=== PATIENT | female | born 1985 | race American Indian/Alaskan Native ===

== ENCOUNTER 2020-03-21 14:52 | Emergency (ER) | payer SELFPAY ==
--- NOTE | 2020-03-21 15:08 | Event Note ---
ED Screening Note Date of service: 03/21/20 Time: 15:07 ED Screening Note: Patient complains of right breast abscess x1 week Worsening This initial assessment/diagnostic orders/clinical plan/treatment(s) is/are subject to change based on patients health status, clinical progression and re-assessment by fellow clinical providers in the ED. Further treatment and workup at subsequent clinical providers discretion. Patient/guardian urged not to elope from the ED as their condition may be serious if not clinically assessed and managed. Initial orders include: Incision and drainage
[2020-03-21 16:18] LABS: Basophils % (Auto) 0.2 % (0.0-1.8); Eosinophils % (Auto) 0.3 % (0.0-4.3); Hematocrit 34.5 % (30.3-42.9); Hemoglobin 11.3 gm/dl (10.1-14.3); Lymphocytes # (Auto) 2.4 K/mm3 (1.2-5.4); Lymphocytes % (Auto) 21.7 % (13.4-35.0); Mean Corpuscular HGB Conc 33 % (30-34); Mean Corpuscular Volume 80 fl (79-97); Monocytes # (Auto) 1.2 K/mm3 (0.0-0.8); Platelet Count 373 K/mm3 (140-440); Red Blood Count 4.29 M/mm3 (3.65-5.03); Red Cell Distribution Width 15.5 % (13.2-15.2)
[2020-03-21 16:30] LABS: Alanine Aminotransferase 14 units/L (7-56); BUN/Creatinine Ratio 9; Blood Urea Nitrogen 7 mg/dL (7-17); Hemolysis Index 3
[2020-03-21] MEDS ORDERED: IBUPROFEN 600 MG TAB PO ONE (17:39)
[2020-03-21] MEDS ORDERED: cefTRIAXone/NS 1 GM/50 ML 1 GM/50 ML BAG IV ONE (17:43)
--- NOTE | 2020-03-21 17:46 | Emergency Department Report ---
- General Chief complaint: Skin/Abscess/Foreign Body Stated complaint: ABSCESS ON RIGHT BREAST Time Seen by Provider: 03/21/20 15:07 Source: patient Mode of arrival: Ambulatory Limitations: No Limitations - History of Present Illness Initial comments: The patient was evaluated in the emergency department for symptoms described in the history of present illness. He/she was evaluated in the context of the global COVID-19 pandemic, which necessitated consideration that the patient might be at risk for infection with the virus that causes COVID-19. Institutional protocols and algorithms that pertain to the evaluation of patients at risk for COVID-19 are in a state of rapid change based on information released by regulatory bodies including the CDC and federal and state organizations. These policies and algorithms were followed during the patient's care in the emergency department. Please note that these policies, procedures and recommendations changed on a rapid basis. 35-year-old -[place] female presents to the emergency room complaining of an abscess to her right breast x1 week. Patient denies any drainage. Patient states that she has been taking Keflex twice a day since Thursday. She does complain of fever chills and headache. Patient states that she had an abscess to the same breast in 2018. Patient has no other complaints. Denies any past medical history does not take any medications on a daily basis. MD complaint: abscess/boil Onset/Timin -: week(s) Tetanus Up to Date: unsure Location: chest (Right breast) Severity: moderate Severity scale (0 -10): 7 Quality: aching, sharp Consistency: constant Improves with: none Worsens with: palpation, movement Associated symptoms: fever, chills, other (Headache) Treatments Prior to Arrival: other (Keflex) - Related Data Previous Rx's Medication Instructions Recorded Last Taken Type Ibuprofen [Motrin 600 MG tab] 600 mg PO Q8H PRN #30 tablet 03/21/20 Unknown Rx Sulfamethoxazole/Trimethoprim 1 each PO BID 10 Days #20 tablet 03/21/20 Unknown Rx [Bactrim DS TAB] cephALEXin [Keflex] 500 mg PO Q12HR 10 Days #20 cap 03/21/20 Unknown Rx Allergies Allergy/AdvReac Type Severity Reaction Status Date / Time No Known Allergies Allergy Unverified 03/21/20 15:08 Abscess Boil HPI - HPI Chief Complaint: Skin/Abscess/Foreign Body Stated Complaint: ABSCESS ON RIGHT BREAST Time Seen by Provider: 03/21/20 15:07 Home Medications: Previous Rx's Medication Instructions Recorded Last Taken Type Ibuprofen [Motrin 600 MG tab] 600 mg PO Q8H PRN #30 tablet 03/21/20 Unknown Rx Sulfamethoxazole/Trimethoprim 1 each PO BID 10 Days #20 tablet 03/21/20 Unknown Rx [Bactrim DS TAB] cephALEXin [Keflex] 500 mg PO Q12HR 10 Days #20 cap 03/21/20 Unknown Rx Allergies/Adverse Reactions: Allergies Allergy/AdvReac Type Severity Reaction Status Date / Time No Known Allergies Allergy Unverified 03/21/20 15:08 ED Review of Systems ROS: Stated complaint: ABSCESS ON RIGHT BREAST Other details as noted in HPI Comment: All other systems reviewed and negative ED Past Medical Hx - Past Medical History Previous Medical History?: No - Surgical History Past Surgical History?: No - Medications Home Medications: Home Medications Medication Instructions Recorded Confirmed Last Taken Type Ibuprofen [Motrin 600 MG tab] 600 mg PO Q8H PRN #30 tablet 03/21/20 Unknown Rx Sulfamethoxazole/Trimethoprim 1 each PO BID 10 Days #20 tablet 03/21/20 Unknown Rx [Bactrim DS TAB] cephALEXin [Keflex] 500 mg PO Q12HR 10 Days #20 cap 03/21/20 Unknown Rx ED Physical Exam - General Limitations: No Limitations General appearance: alert - Head Head exam: Present: atraumatic, normocephalic - Eye Eye exam: Present: normal appearance - ENT ENT exam: Present: mucous membranes moist - Respiratory Respiratory exam: Present: normal lung sounds bilaterally - Cardiovascular Cardiovascular Exam: Present: tachycardia - Neurological Exam Neurological exam: Present: alert, oriented X3, normal gait - Psychiatric Psychiatric exam: Present: normal affect, normal mood - Skin Skin exam: Present: erythema (Mildly edematous mild tenderness to touch no nipple drainage), other (Right breast) ED Course Vital Signs 03/21/20 03/21/20 15:07 17:38 Temperature 100.3 F H 102.3 F H Pulse Rate 102 H Respiratory 14 Rate O2 Sat by Pulse 100 Oximetry ED Medical Decision Making - Lab Data Result diagrams: 03/21/20 15:47 03/21/20 15:47 - Radiology Data Radiology results: report reviewed Referring Physician:INES PEREZPatient Name:TREMAINE PEMBERTONPatient ID:[id number] of :[id number]:FemaleAccession:[id number] Date:[id number] Status:Finalized Findings [facility] [address] [place] [address] Ultrasound Report Signed Patient: TREMAINE PEMBERTON MR#: [id number] 420 : 1985 Acct:[id number] Age/Sex: 35 / F ADM Date: 03/21/20 Loc: ED Attending Dr: Ordering Physician: IRAJ COLE Date of Service: 03/21/20 Procedure(s): US breast RT complete Accession Number(s): [id number] cc: IRAJ COLE RIGHT BREAST ULTRASOUND HISTORY: Breast pain and swelling FINDINGS: Ultrasound was performed the site of patient's palpable abnormality adjacent to the nipple. A complex hypoechoic area is seen at the palpable site measuring 6.1 x 2 x 6.4 cm. IMPRESSION: Suspected abscess at the palpable site. Signer Name: Ranjit Carroll MD Signed: 03/21/2020 9:12 PM Workstation Name: [id number] Transcribed By: ES Dictated By: Ranjit Carroll MD Electronically Authenticated By: Ranjit Carroll MD Signed Date/Time: 03/21/202111 DD/ 09 TD/TT: - Medical Decision Making 35-year-old -[place] female presents to the emergency room complaining of an abscess to her right breast x1 week. Patient denies any drainage. Patient states that she has been taking Keflex twice a day since Thursday. She does complain of fever chills and headache. Patient states that she had an abscess to the same breast in 2018. Patient has no other complaints. Denies any past medical history does not take any medications on a daily basis. Temperature was rechecked by this provider 102.3. initiated ibuprofen, ultrasound right breast concern for abscess pocket and IV Rocephin. Critical care attestation.: If time is entered above; I have spent that time in minutes in the direct care of this critically ill patient, excluding procedure time. ED Disposition Clinical Impression: Abscess of breast, right Disposition: DC-01 TO HOME OR SELFCARE Is pt being admited?: No Does the pt Need Aspirin: No Condition: Stable Instructions: Skin Abscess Additional Instructions: Complete antibiotics as prescribed. Ibuprofen as needed for pain. Is very important for you to follow-up with the breast specialist I have listed her in formation below. You can continue with warm compresses to the breast. Prescriptions: Sulfamethoxazole/Trimethoprim [Bactrim DS TAB] 1 each PO BID 10 Days #20 tablet cephALEXin [Keflex] 500 mg PO Q12HR 10 Days #20 cap Ibuprofen [Motrin 600 MG tab] 600 mg PO Q8H PRN #30 tablet PRN Reason: Pain Referrals: PRIMARY MD MYLA [Primary Care Provider] - 3-5 Days NETTIE ALVAREZ MD [Staff Physician] - 3-5 Days Forms: Work/School Release Form(ED)
--- NOTE | 2020-03-21 21:13 | Ultrasound Report ---
RIGHT BREAST ULTRASOUND HISTORY: Breast pain and swelling FINDINGS: Ultrasound was performed the site of patient's palpable abnormality adjacent to the nipple. A complex hypoechoic area is seen at the palpable site measuring 6.1 x 2 x 6.4 cm. IMPRESSION: Suspected abscess at the palpable site. Signer Name: Ranjit Carroll MD Signed: 03/21/2020 9:12 PM Workstation Name: [id number]
[2020-03-21 22:54] VITALS: BP 134/87
== END 2020-03-21 21:35 | disposition home or self-care (01) ==
LOC: ED 14:52
DX: N61.1 Abscess of the breast and nipple (principal); Z79.899 Other long term (current) drug therapy
CPT/HCPCS: 36415; 76641; 80053; 82140; 84703; 85025; 96365; 99284; J0696